=== PATIENT | female | born 1950 | race Two or more races ===

== ENCOUNTER 2017-05-25 14:07 | Outpatient (CLI) | payer OTHER ==
[~2017-05-25 14:07] MED LIST: AMBIEN PAK10 MG PO; AMBIEN5 MG PO; CELEBREX50 MG; CIPRO500 MG PO; CYMBALTA20 MG; DOXEPIN HCL100 MG PO; EFFEXOR XR150 MG PO; EFFEXOR XR75 MG PO; HUMULIN N100 U/ML SQ; LEXAPRO5 MG PO; LOTREL 5-10 MG1 CAP PO; PERCOCET 5-3251 EACH PO; SEROQUEL200 MG PO; SEROQUEL25 MG PO; TRAMADOL HCL-AP1 TAB PO; ULTRAM50 MG PO; VISTARIL50 MG PO; ZOLOFT20 MG/1 ML
== END 2017-05-25 14:27 | disposition home or self-care (01) ==
LOC: LAB 14:07
DX: I73.89 Other specified peripheral vascular diseases (principal); D51.3 Other dietary vitamin B12 deficiency anemia; I10 Essential (primary) hypertension; E08.65 Diabetes mellitus due to underlying condition with hyperglycemia; F33.9 Major depressive disorder, recurrent, unspecified; N20.0 Calculus of kidney; E21.0 Primary hyperparathyroidism; D50.8 Other iron deficiency anemias; D51.8 Other vitamin B12 deficiency anemias; E55.9 Vitamin D deficiency, unspecified; K90.89 Other intestinal malabsorption; E03.8 Other specified hypothyroidism; R97.0 Elevated carcinoembryonic antigen [CEA]; G51.0 Bell's palsy; Z51.81 Encounter for therapeutic drug level monitoring

== ENCOUNTER → 2017-05-28 | Outpatient (CLI) | payer OTHER | END | disposition home or self-care (01) | LOC: MRI 09:45 | DX: G51.0 Bell's palsy (principal) | CPT/HCPCS: 70553; A9579 ==

== ENCOUNTER 2017-05-29 09:17 | Outpatient (CLI) | payer OTHER | END 2017-05-29 09:29 | disposition home or self-care (01) | LOC: NUCLEAR 09:17 | DX: I73.9 Peripheral vascular disease, unspecified (principal); D51.3 Other dietary vitamin B12 deficiency anemia; I10 Essential (primary) hypertension; E08.65 Diabetes mellitus due to underlying condition with hyperglycemia; F33.9 Major depressive disorder, recurrent, unspecified; N20.0 Calculus of kidney; E21.0 Primary hyperparathyroidism; I87.2 Venous insufficiency (chronic) (peripheral) ==

== ENCOUNTER → 2018-04-14 10:57 | Outpatient (CLI) | payer OTHER | END | disposition home or self-care (01) | LOC: LAB 10:57 | DX: D51.3 Other dietary vitamin B12 deficiency anemia (principal); I73.9 Peripheral vascular disease, unspecified; R80.8 Other proteinuria; I10 Essential (primary) hypertension; E08.65 Diabetes mellitus due to underlying condition with hyperglycemia; F33.9 Major depressive disorder, recurrent, unspecified; N20.0 Calculus of kidney; E21.0 Primary hyperparathyroidism; D50.8 Other iron deficiency anemias; D51.8 Other vitamin B12 deficiency anemias; K90.89 Other intestinal malabsorption; D51.1 Vitamin B12 deficiency anemia due to selective vitamin B12 malabsorption with proteinuria; D51.0 Vitamin B12 deficiency anemia due to intrinsic factor deficiency; E03.8 Other specified hypothyroidism; R97.0 Elevated carcinoembryonic antigen [CEA]; E21.3 Hyperparathyroidism, unspecified ==

== ENCOUNTER → 2018-04-19 | Outpatient (CLI) | payer OTHER | END | disposition home or self-care (01) | LOC: NUCLEAR 04-15 11:00 | DX: D51.3 Other dietary vitamin B12 deficiency anemia (principal); I73.9 Peripheral vascular disease, unspecified; R80.8 Other proteinuria; I10 Essential (primary) hypertension; E08.65 Diabetes mellitus due to underlying condition with hyperglycemia; F33.9 Major depressive disorder, recurrent, unspecified; N20.0 Calculus of kidney; E21.0 Primary hyperparathyroidism; I87.2 Venous insufficiency (chronic) (peripheral) ==

== ENCOUNTER 2018-06-17 09:49 | Outpatient (CLI) | payer OTHER | END 2018-06-17 09:59 | disposition home or self-care (01) | LOC: RAD 09:49 | DX: H25.011 Cortical age-related cataract, right eye (principal); Z98.41 Cataract extraction status, right eye ==

== ENCOUNTER 2018-06-18 09:44 | Outpatient (CLI) | payer OTHER | END 2018-06-18 14:54 | disposition home or self-care (01) | LOC: LAB 09:44 | DX: D68.8 Other specified coagulation defects (principal); H25.011 Cortical age-related cataract, right eye ==

== ENCOUNTER 2018-09-05 13:24 | Emergency (ER) | payer OTHER ==
[~2018-09-05] VITALS: Ht 149.9 cm; Wt 68.0 kg
== END 2018-09-05 18:38 | disposition home or self-care (01) ==
LOC: ER 13:24
DX: K52.89 Other specified noninfective gastroenteritis and colitis (principal)

== ENCOUNTER 2018-09-23 09:58 | Outpatient (CLI) | payer OTHER | END 2018-09-23 10:10 | disposition home or self-care (01) | LOC: LAB 09:58 | DX: I10 Essential (primary) hypertension (principal); E03.8 Other specified hypothyroidism; E78.2 Mixed hyperlipidemia; D51.3 Other dietary vitamin B12 deficiency anemia; I73.9 Peripheral vascular disease, unspecified; R80.8 Other proteinuria; E08.65 Diabetes mellitus due to underlying condition with hyperglycemia; F33.8 Other recurrent depressive disorders; N20.0 Calculus of kidney; E21.0 Primary hyperparathyroidism; D50.8 Other iron deficiency anemias; D51.8 Other vitamin B12 deficiency anemias; R97.8 Other abnormal tumor markers ==

== ENCOUNTER 2018-11-08 07:12 | Outpatient (CLI) | payer OTHER | END 2018-11-08 07:59 | disposition home or self-care (01) | LOC: NUCLEAR 07:12 | DX: E21.0 Primary hyperparathyroidism (principal); D51.8 Other vitamin B12 deficiency anemias; R80.8 Other proteinuria; E08.65 Diabetes mellitus due to underlying condition with hyperglycemia; N20.0 Calculus of kidney | CPT/HCPCS: 78070; A9500 ==

== ENCOUNTER 2018-11-23 12:55 | Outpatient (CLI) | payer OTHER | END 2018-11-23 15:00 | disposition home or self-care (01) | LOC: EKG 12:55 → LAB 12:55 | DX: I10 Essential (primary) hypertension (principal) ==

== ENCOUNTER 2019-01-03 10:24 | Outpatient (CLI) | payer OTHER | END 2019-01-03 10:27 | disposition home or self-care (01) | LOC: SONOGRAMA 10:24 | DX: D51.3 Other dietary vitamin B12 deficiency anemia (principal); I73.89 Other specified peripheral vascular diseases; R80.8 Other proteinuria; I10 Essential (primary) hypertension; E08.65 Diabetes mellitus due to underlying condition with hyperglycemia; N20.0 Calculus of kidney; E21.0 Primary hyperparathyroidism; F33.8 Other recurrent depressive disorders ==

== ENCOUNTER 2019-01-04 10:10 | Outpatient (CLI) | payer OTHER | END 2019-01-04 15:00 | disposition home or self-care (01) | LOC: LAB 10:10 | DX: E03.8 Other specified hypothyroidism (principal); I10 Essential (primary) hypertension; E11.9 Type 2 diabetes mellitus without complications; E78.2 Mixed hyperlipidemia ==

== ENCOUNTER 2019-01-21 11:16 | Emergency (ER) | payer OTHER ==
[~2019-01-21] VITALS: Ht 149.9 cm; Wt 70.8 kg
[2019-01-21] MEDS ORDERED: LORAZEPAM1 MG PO (11:26)
[2019-01-21] MEDS ORDERED: VISTARIL50 MG (11:26)
[2019-01-21] MEDS ORDERED: GLIMEPIRIDE4 MG (11:27)
[2019-01-21] MEDS ORDERED: NEURONTIN800 MG (11:28)
[2019-01-21] MEDS ORDERED: DEPAKOTE ER500 MG (11:28)
[2019-01-21] MEDS ORDERED: DULOXETINE HCL40 MG (11:28)
== END 2019-01-22 16:12 | disposition home or self-care (01) ==
LOC: ER 11:16
DX: T42.4X4A Poisoning by benzodiazepines, undetermined, initial encounter (principal); F19.182 Other psychoactive substance abuse with psychoactive substance-induced sleep disorder; R41.0 Disorientation, unspecified; E11.65 Type 2 diabetes mellitus with hyperglycemia; F41.8 Other specified anxiety disorders; Y92.89 Other specified places as the place of occurrence of the external cause; Z79.4 Long term (current) use of insulin

== ENCOUNTER 2019-04-03 19:42 | Emergency (ER) | payer OTHER ==
[~2019-04-03] VITALS: Ht 149.9 cm; Wt 65.8 kg
[~2019-04-03 19:42] MED LIST changes: +DEPAKOTE ER500 MG; +DULOXETINE HCL40 MG; +GLIMEPIRIDE4 MG; +LORAZEPAM1 MG PO; +NEURONTIN800 MG; +VISTARIL50 MG
[2019-04-03] MEDS ORDERED: FORTAMET500 MG (20:03)
[2019-04-03] MEDS ORDERED: RESTORIL30 MG (20:03)
[2019-04-03] MEDS ORDERED: TESSALON PERLE100 M1 (20:42)
[2019-04-04] MEDS ORDERED: KETO10TA2 PO (02:31)
[2019-04-04] MEDS ORDERED: IBU400 MG PO (02:35)
== END 2019-04-04 02:42 | disposition home or self-care (01) ==
LOC: ER 19:42
DX: S00.03XA Contusion of scalp, initial encounter (principal); S30.0XXA Contusion of lower back and pelvis, initial encounter; T50.994A Poisoning by other drugs, medicaments and biological substances, undetermined, initial encounter; R42 Dizziness and giddiness; F41.1 Generalized anxiety disorder; W18.09XA Striking against other object with subsequent fall, initial encounter; Y93.89 Activity, other specified; Y92.018 Other place in single-family (private) house as the place of occurrence of the external cause; Y99.8 Other external cause status

== ENCOUNTER 2019-05-10 12:54 | Outpatient (CLI) | payer OTHER ==
[~2019-05-10 12:54] MED LIST changes: +FORTAMET500 MG; +IBU400 MG PO; +KETO10TA2 PO; +RESTORIL30 MG; +TESSALON PERLE100 M1
== END 2019-05-10 14:46 | disposition home or self-care (01) ==
LOC: RAD 12:54
DX: M46.47 Discitis, unspecified, lumbosacral region (principal)

== ENCOUNTER → 2019-06-06 08:12 | Outpatient (CLI) | payer OTHER | END | disposition home or self-care (01) | LOC: NUCLEAR 08:00 | DX: K80.20 Calculus of gallbladder without cholecystitis without obstruction (principal) | CPT/HCPCS: 78227; A9537 ==

== ENCOUNTER 2019-06-08 14:16 | Outpatient (CLI) | payer OTHER | END 2019-06-08 14:39 | disposition home or self-care (01) | LOC: LAB 14:16 | DX: R19.5 Other fecal abnormalities (principal) ==

== ENCOUNTER 2019-06-08 15:14 | Outpatient (CLI) | payer OTHER | END 2019-06-08 15:26 | disposition home or self-care (01) | LOC: TOM 15:14 | DX: K57.90 Diverticulosis of intestine, part unspecified, without perforation or abscess without bleeding (principal) ==

== ENCOUNTER 2019-07-01 12:51 | Inpatient (IN) | payer OTHER ==
[~2019-07-01] VITALS: Ht 149.9 cm; Wt 67.1 kg
[2019-07-01] MEDS ORDERED: FORTAMET1000 MG PO (13:10)
== END 2019-07-07 13:04 | disposition home or self-care (01) | DRG 392 ==
LOC: ER 12:51 → MEDJ 07-02 08:28
PROVIDERS: ADMIT Internal Medicine Cardiovascular Disease
DX: K57.32 Diverticulitis of large intestine without perforation or abscess without bleeding (principal); N20.0 Calculus of kidney; G51.8 Other disorders of facial nerve; I10 Essential (primary) hypertension; N94.19 Other specified dyspareunia

== ENCOUNTER 2019-09-06 10:14 | Outpatient (CLI) | payer OTHER ==
[~2019-09-06 10:14] MED LIST changes: +FORTAMET1000 MG PO
== END 2019-09-06 10:31 | disposition home or self-care (01) ==
LOC: LAB 10:14
PROVIDERS: ATTEND Internal Medicine Hematology & Oncology
DX: D51.3 Other dietary vitamin B12 deficiency anemia (principal); I73.89 Other specified peripheral vascular diseases; R80.8 Other proteinuria; I10 Essential (primary) hypertension; E08.65 Diabetes mellitus due to underlying condition with hyperglycemia; F33.8 Other recurrent depressive disorders; N20.0 Calculus of kidney; E21.0 Primary hyperparathyroidism; D50.8 Other iron deficiency anemias

== ENCOUNTER 2020-01-24 08:36 | Emergency (ER) | payer OTHER ==
[~2020-01-24] VITALS: Ht 144.8 cm; Wt 63.5 kg
[2020-01-24] MEDS ORDERED: LEVSIN/SL0.125 MG SL (13:09)
[2020-01-24] MEDS ORDERED: PEPCID AC20 MG PO (13:09)
[2020-01-24] MEDS ORDERED: ZOFRAN8 MG PO (15:02)
== END 2020-01-24 16:41 | disposition home or self-care (01) ==
LOC: ER 08:36
DX: R10.11 Right upper quadrant pain (principal); R11.2 Nausea with vomiting, unspecified; Z03.818 Encounter for observation for suspected exposure to other biological agents ruled out

== ENCOUNTER 2020-02-11 21:03 | Emergency (ER) | payer OTHER ==
[~2020-02-11] VITALS: Ht 149.9 cm; Wt 63.5 kg
[~2020-02-11 21:03] MED LIST changes: +LEVSIN/SL0.125 MG SL; +PEPCID AC20 MG PO; +ZOFRAN8 MG PO
[2020-02-12] MEDS ORDERED: KETO10TA2 PO (01:13)
[2020-02-12] MEDS ORDERED: PEPCID AC20 MG PO (01:13)
== END 2020-02-12 01:25 | disposition home or self-care (01) ==
LOC: ER 21:03
DX: S52.511A Displaced fracture of right radial styloid process, initial encounter for closed fracture (principal); S52.611A Displaced fracture of right ulna styloid process, initial encounter for closed fracture; W18.09XA Striking against other object with subsequent fall, initial encounter; Y93.89 Activity, other specified; Y92.018 Other place in single-family (private) house as the place of occurrence of the external cause; Y99.8 Other external cause status

== ENCOUNTER 2020-03-03 09:54 | Outpatient (CLI) | payer OTHER ==
[2020-03-09] MEDS ORDERED: DICLOFENAC POTA50 MG PO (12:45)
== END 2020-03-03 09:59 | disposition home or self-care (01) ==
LOC: RAD 09:54
PROVIDERS: ATTEND Orthopaedic Surgery
DX: M25.531 Pain in right wrist (principal)

== ENCOUNTER 2020-03-06 12:06 | Outpatient (CLI) | payer OTHER ==
[2020-03-09] MEDS ORDERED: DICLOFENAC POTA50 MG PO (12:45)
== END 2020-03-06 12:10 | disposition home or self-care (01) ==
LOC: RAD 12:06
PROVIDERS: ATTEND Orthopaedic Surgery
DX: M25.521 Pain in right elbow (principal)

== ENCOUNTER 2020-05-04 13:27 | Outpatient (CLI) | payer OTHER ==
[~2020-05-04 13:27] MED LIST changes: +DICLOFENAC POTA50 MG PO; +NEURONTIN800 MG PO
== END 2020-05-04 13:31 | disposition home or self-care (01) ==
LOC: RAD 13:27
PROVIDERS: ATTEND Orthopaedic Surgery
DX: M25.521 Pain in right elbow (principal); S52.571S Other intraarticular fracture of lower end of right radius, sequela

== ENCOUNTER → 2020-11-23 08:28 | Outpatient (CLI) | payer OTHER ==
[~2020-11-23 08:28] MED LIST changes: +BACTRIM DS TAB1 EACH PO; +INTESTINEX680 M1 PO; +MUPIROCIN15 GM TOP
== END | disposition home or self-care (01) ==
LOC: LAB 08:28
PROVIDERS: ATTEND Internal Medicine Hematology & Oncology
DX: K80.10 Calculus of gallbladder with chronic cholecystitis without obstruction (principal); D50.8 Other iron deficiency anemias; I10 Essential (primary) hypertension; R74.02 Elevation of levels of lactic acid dehydrogenase [LDH]; K76.89 Other specified diseases of liver; R97.0 Elevated carcinoembryonic antigen [CEA]; D47.2 Monoclonal gammopathy; C90.00 Multiple myeloma not having achieved remission; D51.3 Other dietary vitamin B12 deficiency anemia; I73.89 Other specified peripheral vascular diseases; R80.8 Other proteinuria; E08.65 Diabetes mellitus due to underlying condition with hyperglycemia; F33.8 Other recurrent depressive disorders; N20.0 Calculus of kidney; E21.0 Primary hyperparathyroidism

== ENCOUNTER 2020-12-04 15:48 | Emergency (ER) | payer OTHER ==
[~2020-12-04] VITALS: Ht 154.9 cm; Wt 66.2 kg
[~2020-12-04 15:48] MED LIST changes: -BACTRIM DS TAB1 EACH PO; -INTESTINEX680 M1 PO; -MUPIROCIN15 GM TOP
== END 2020-12-04 21:48 | disposition home or self-care (01) ==
LOC: ER 15:48
DX: K57.30 Diverticulosis of large intestine without perforation or abscess without bleeding (principal); N20.0 Calculus of kidney; R10.32 Left lower quadrant pain; R09.02 Hypoxemia

== ENCOUNTER 2020-12-20 13:12 | Emergency (ER) | payer OTHER ==
[~2020-12-20] VITALS: Ht 147.3 cm; Wt 66.2 kg
[2020-12-20] MEDS ORDERED: BACTRIM DS TAB1 EACH PO (15:53)
[2020-12-20] MEDS ORDERED: INTESTINEX680 M1 PO (15:53)
[2020-12-20] MEDS ORDERED: MUPIROCIN15 GM TOP (15:53)
== END 2020-12-20 16:15 | disposition home or self-care (01) ==
LOC: ER 13:12
DX: L03.116 Cellulitis of left lower limb (principal); S80.862A Insect bite (nonvenomous), left lower leg, initial encounter; W57.XXXA Bitten or stung by nonvenomous insect and other nonvenomous arthropods, initial encounter; Y93.89 Activity, other specified; Y92.89 Other specified places as the place of occurrence of the external cause; Y99.8 Other external cause status

== ENCOUNTER 2021-01-28 12:32 | Outpatient (CLI) | payer OTHER ==
[~2021-01-28 12:32] MED LIST changes: +BACTRIM DS TAB1 EACH PO; +INTESTINEX680 M1 PO; +MUPIROCIN15 GM TOP
== END 2021-01-28 12:36 | disposition home or self-care (01) ==
LOC: NUCLEAR 12:32
PROVIDERS: ATTEND Internal Medicine
DX: M81.0 Age-related osteoporosis without current pathological fracture (principal)

== ENCOUNTER 2021-05-04 15:24 | Emergency (ER) | payer OTHER ==
[~2021-05-04] VITALS: Ht 152.4 cm; Wt 67.1 kg
[2021-05-04] MEDS ORDERED: ZOFRAN8 MG PO (23:30)
[2021-05-04] MEDS ORDERED: PEPCID AC20 MG PO (23:30)
== END 2021-05-04 23:27 | disposition home or self-care (01) ==
LOC: ER 15:24
DX: R11.2 Nausea with vomiting, unspecified (principal); R10.11 Right upper quadrant pain; F41.1 Generalized anxiety disorder; T50.995A Adverse effect of other drugs, medicaments and biological substances, initial encounter; Y92.89 Other specified places as the place of occurrence of the external cause

== ENCOUNTER 2021-07-01 08:24 | Outpatient (CLI) | payer OTHER | END 2021-07-01 08:28 | disposition home or self-care (01) | LOC: MRI 08:24 | PROVIDERS: ATTEND Specialist | DX: K80.10 Calculus of gallbladder with chronic cholecystitis without obstruction (principal) | CPT/HCPCS: 74181 ==

== ENCOUNTER 2021-07-01 09:23 | Outpatient (CLI) | payer OTHER | END 2021-07-01 09:24 | disposition home or self-care (01) | LOC: LAB 09:23 | PROVIDERS: ATTEND Specialist | DX: K80.10 Calculus of gallbladder with chronic cholecystitis without obstruction (principal) ==

== ENCOUNTER 2021-07-16 05:30 | Day surgery (SDC) | payer OTHER ==
[~2021-07-16 05:30] MED LIST changes: +CRESTOR5 MG PO; +[UNRECOGNIZED DRUG - OTHER] PO
== END 2021-07-16 11:45 | disposition home or self-care (01) ==
LOC: CIR.AMB 05:30
PROVIDERS: ATTEND Specialist
DX: K80.10 Calculus of gallbladder with chronic cholecystitis without obstruction (principal); K76.0 Fatty (change of) liver, not elsewhere classified; I10 Essential (primary) hypertension; E78.5 Hyperlipidemia, unspecified; G47.33 Obstructive sleep apnea (adult) (pediatric); Z99.89 Dependence on other enabling machines and devices; E11.9 Type 2 diabetes mellitus without complications; F41.9 Anxiety disorder, unspecified; E03.9 Hypothyroidism, unspecified; G43.909 Migraine, unspecified, not intractable, without status migrainosus; K21.9 Gastro-esophageal reflux disease without esophagitis; K57.30 Diverticulosis of large intestine without perforation or abscess without bleeding; J32.8 Other chronic sinusitis; R42 Dizziness and giddiness; G40.802 Other epilepsy, not intractable, without status epilepticus; G83.89 Other specified paralytic syndromes; Z20.822 Contact with and (suspected) exposure to COVID-19

== ENCOUNTER 2021-10-23 13:26 | Outpatient (CLI) | payer OTHER | END 2021-10-23 13:29 | disposition home or self-care (01) | LOC: SONOGRAMA 13:26 | PROVIDERS: ATTEND Internal Medicine | DX: E04.2 Nontoxic multinodular goiter (principal) ==

== ENCOUNTER 2021-11-07 08:38 | Outpatient (CLI) | payer OTHER | END 2021-11-07 08:41 | disposition home or self-care (01) | LOC: MAMO-SONO 08:38 | PROVIDERS: ATTEND Internal Medicine Hematology & Oncology | DX: Z12.31 Encounter for screening mammogram for malignant neoplasm of breast (principal); N63.0 Unspecified lump in unspecified breast; N64.4 Mastodynia ==

== ENCOUNTER 2022-03-18 12:17 | Outpatient (CLI) | payer OTHER | END 2022-03-18 12:21 | disposition home or self-care (01) | LOC: MRI 12:17 | PROVIDERS: ATTEND Psychiatry & Neurology Neurology | DX: G30.9 Alzheimer's disease, unspecified (principal) | CPT/HCPCS: 70551 ==

== ENCOUNTER 2022-07-21 07:46 | Outpatient (CLI) | payer OTHER | END 2022-07-21 08:04 | disposition home or self-care (01) | LOC: TOM 07:46 | PROVIDERS: ATTEND Internal Medicine Gastroenterology | DX: R10.84 Generalized abdominal pain (principal) ==

== ENCOUNTER 2022-08-27 13:37 | Outpatient (CLI) | payer OTHER | END 2022-08-27 13:57 | disposition home or self-care (01) | LOC: SONOGRAMA 13:37 | PROVIDERS: ATTEND Urology | DX: N20.0 Calculus of kidney (principal) ==

== ENCOUNTER 2022-12-17 12:05 | Outpatient (CLI) | payer OTHER | END 2022-12-17 12:10 | disposition home or self-care (01) | LOC: RAD 12:05 | DX: J18.0 Bronchopneumonia, unspecified organism (principal) ==

== ENCOUNTER 2022-12-17 12:28 | Outpatient (CLI) | payer OTHER | END 2022-12-17 15:00 | disposition home or self-care (01) | LOC: EKG 12:28 | DX: R03.0 Elevated blood-pressure reading, without diagnosis of hypertension (principal) ==

== ENCOUNTER 2023-03-26 13:13 | Outpatient (CLI) | payer OTHER | END 2023-03-26 13:20 | disposition home or self-care (01) | LOC: NUCLEAR 13:13 | DX: M81.0 Age-related osteoporosis without current pathological fracture (principal); E11.65 Type 2 diabetes mellitus with hyperglycemia ==

== ENCOUNTER 2023-09-29 14:25 | Outpatient (CLI) | payer OTHER | END 2023-09-29 14:30 | disposition home or self-care (01) | LOC: MAMO-SONO 14:25 | PROVIDERS: ATTEND Internal Medicine Hematology & Oncology | DX: N63.0 Unspecified lump in unspecified breast (principal); N64.4 Mastodynia; Z12.31 Encounter for screening mammogram for malignant neoplasm of breast; D51.3 Other dietary vitamin B12 deficiency anemia; I73.9 Peripheral vascular disease, unspecified; R80.8 Other proteinuria; I10 Essential (primary) hypertension; E08.65 Diabetes mellitus due to underlying condition with hyperglycemia; F33.9 Major depressive disorder, recurrent, unspecified; N20.0 Calculus of kidney; E21.0 Primary hyperparathyroidism ==

== ENCOUNTER 2023-10-31 15:06 | Emergency (ER) | payer OTHER ==
[~2023-10-31] VITALS: Ht 149.9 cm; Wt 63.5 kg
[2023-10-31] MEDS ORDERED: 0.9 % SODIUM CHLORIDE 1,000 ML IV SCH (17:00)
[2023-10-31] MEDS ORDERED: FAMOTIDINE/PF 20 MG/2 ML VIAL IV PUSH ONE (17:00)
[2023-10-31] MEDS ORDERED: PROMETHAZINE HCL 25 MG/ML AMPUL IV ONE (17:00)
[2023-10-31] MEDS ORDERED: PROMETHAZINE HCL 25 MG/ML AMPUL ONE (17:03)
[2023-10-31] MEDS ORDERED: FAMOtidine 200mg/20ml VIAL ONE (17:03)
[2023-10-31 17:16] LABS: HEMATOCRIT 51.2 % (36.0-45.00); HEMOGLOBIN 17.5 g/dL (12.0-15.00); MEAN CELL VOLUME 85.3 fL (80.00-100.00); MEAN CORPUSCULAR HEMOGLOBIN 29.2 pg (27.00-32.0); MEAN CORPUSCULAR HGB CONC 34.2 g/dl (32.0-36.0); PLATELET COUNT 198 K/uL (150-450); RED CELL DISTRIBUTION WIDTH 14.9 % (11.5-14.5)
[2023-10-31 17:40] LABS: ALBUMIN 4.3 gm/dL (3.4-5.0); BILIRUBIN TOTAL 1.23 mg/dL (0.3-1.2); CALCIUM 10.4 mg/dL (8.5-10.1); CREATININE SERUM 0.87 mg/dL (0.55-1.02); GLOBULINA 4.6 G/DL (2.4-3.5); TOTAL PROTEIN 8.9 gm/dL (6.4-8.2)
[2023-10-31 17:43] LABS: POTASSIUM 3.94 mEq/L (3.5-5.1)
== END 2023-10-31 21:54 | disposition home or self-care (01) ==
LOC: ER 15:07
PROVIDERS: Emergency Medicine
DX: H10.30 Unspecified acute conjunctivitis, unspecified eye (principal); R11.0 Nausea; K29.70 Gastritis, unspecified, without bleeding
CPT/HCPCS: 36415; 96365; 96366; 99283; J2550; J7030

== ENCOUNTER 2024-09-15 12:45 | Outpatient (CLI) | payer OTHER | END 2024-09-15 12:47 | disposition home or self-care (01) | LOC: RAD 12:45 | PROVIDERS: ATTEND Internal Medicine Nephrology | DX: S59.901A Unspecified injury of right elbow, initial encounter (principal) ==

== ENCOUNTER 2024-10-03 12:16 | Outpatient (CLI) | payer OTHER | END 2024-10-03 12:19 | disposition home or self-care (01) | LOC: MRI 12:16 | DX: G30.9 Alzheimer's disease, unspecified (principal) | CPT/HCPCS: 70551 ==

== ENCOUNTER 2024-10-11 10:03 | Outpatient (CLI) | payer OTHER | END 2024-10-11 10:10 | disposition home or self-care (01) | LOC: MAMO-SONO 10:03 | PROVIDERS: ATTEND Internal Medicine Hematology & Oncology | DX: N63.0 Unspecified lump in unspecified breast (principal); N64.4 Mastodynia; Z12.31 Encounter for screening mammogram for malignant neoplasm of breast ==